=== PATIENT | female | born 1980 | race Two or more races ===

== ENCOUNTER 2020-06-19 07:42 | Outpatient (CLI) | payer OTHER | END 2020-06-19 07:43 | disposition home or self-care (01) | LOC: PPH VACUNA 07:42 | DX: Z23 Encounter for immunization (principal) ==

== ENCOUNTER → 2020-07-10 14:41 | Outpatient (CLI) | payer OTHER | END | disposition home or self-care (01) | LOC: PPH VACUNA 14:41 | DX: Z23 Encounter for immunization (principal) ==